=== PATIENT | male | born 1970 | race Caucasian/White ===

== ENCOUNTER 2017-09-07 21:20 | Inpatient (IN) | payer BC ==
[~2017-09-07] VITALS: Ht 177.8 cm; Wt 131.3 kg
[~2017-09-07 21:20] MED LIST: FLEXERIL10 MG PO; MOBIC7.5 MG PO; NEURONTIN600 MG PO; NOHOMEMEDS
[2017-09-08 06:25] VITALS: BP 125/76
[2017-09-08] MEDS ORDERED: DIAZEPAM10 MG PO (11:16)
[2017-09-08] MEDS ORDERED: OXYCODONE-APAP1 EACH PO (11:16)
[2017-09-08 12:30] VITALS: BP 152/76
[2017-09-08 12:32] LABS: ADD MIUA? YES; BILIRUBIN NEGATIVE; BLOOD NEGATIVE; COLOR YELLOW ((YELLOW)); GLUCOSE (STRIP) NEGATIVE; KETONES NEGATIVE; LEUKOCYTES NEGATIVE; NITRITE NEGATIVE; PROTEIN (STRIP) NEGATIVE; SPECIFIC GRAVITY 1.026 (1.000-1.030); UROBILINOGEN 0.2 MG/DL (0.2-1.0)
[2017-09-08 12:57] LABS: CASTS PRESENT /LPF
[2017-09-08 15:48] VITALS: BP 134/83
[2017-09-08 23:20] VITALS: BP 159/69
[2017-09-09 07:13] VITALS: BP 128/74
[2017-09-09 12:20] VITALS: BP 133/88
[2017-09-09 15:30] VITALS: BP 128/78
[2017-09-09 23:51] VITALS: BP 148/78
[2017-09-10 07:07] VITALS: BP 139/83
== END 2017-09-10 10:45 | disposition home or self-care (01) | DRG 460 ==
LOC: ENRESERV 21:20 → 2SOUTH 09-08 05:26 → ENRESERV 09-08 11:16 → 2SOUTH 09-08 11:59 → 3EAST 09-08 12:07 → 2SOUTH 09-08 15:24 → 3EAST 09-10 10:45
PROVIDERS: Neurological Surgery
DX: M51.27 Other intervertebral disc displacement, lumbosacral region (principal); M51.17 Intervertebral disc disorders with radiculopathy, lumbosacral region
CPT/HCPCS: 72100; 76000; 81003; 86850; 86900; 86901; 87086; 94799; 97530 GO; C1821; J0690; J1100; J2250; J2270; J2405; J2710; J3010; J3370; J3480